=== PATIENT | male | born 1970 | race Two or more races ===

== ENCOUNTER 2025-04-01 06:40 | Day surgery (SDC) | payer OTHER, SELFPAY ==
[2025-03-31 12:53] VITALS: BMI 29.0
[2025-04-01] VITALS (10 sets, daily range): BP systolic 121–163; BP diastolic 76–96; PULSE 77–97; RESP 12–18; TEMP 36.6–36.7; O2SAT 95–100; BMI 26.6
[2025-04-01] MEDS: fentaNYL CIT INJ 50 mCg/ML AMP 2ML (ASD USE ONLY) IVP (07:29)
[2025-04-01] MEDS: SODIUM CHLORIDE 0.9% 500 ML 500 ML 100 ML IV (07:29)
[2025-04-01] MEDS: MIDAZOLAM INJ 1 MG/ML VIAL 2 ML (ASD USE ONLY) 2 MG IVP (07:29)
== END 2025-04-01 08:35 | disposition home or self-care (01) ==
PROVIDERS: PCP Physician Assistant; Referring Provider Surgery; Visit Provider Surgery
PROC: 0DBE8ZX Excision of Large Intestine, Via Natural or Artificial Opening Endoscopic, Diagnostic (ICD-10-PCS; CPT 45380; principal; 2025-04-01 07:30)
DX: R19.5 Other fecal abnormalities (principal); K64.0 First degree hemorrhoids; E11.9 Type 2 diabetes mellitus without complications; E78.00 Pure hypercholesterolemia, unspecified; I10 Essential (primary) hypertension; Z79.84 Long term (current) use of oral hypoglycemic drugs; Z79.899 Other long term (current) drug therapy
CPT/HCPCS: 45378; A4649; J1200; J2250; J3010; J7999